=== PATIENT | female | born 1980 | race Caucasian/White ===

== ENCOUNTER 2017-02-14 21:01 | Emergency (ER) | payer BC, OTHER ==
[~2017-02-14] VITALS: Ht 160 cm; Wt 99.8 kg
--- NOTE | 2017-02-14 21:31 | NUR ---
Pt ambulated to room with stiff gait. Pt c/o severe low back pain radiating down legs. Left worse than right and left knee pain s/p fall yesterday. Pt resting in position of comfort for self. Awaiting further eval.
[2017-02-14] MEDS ORDERED: DIAZEPAM 2 MG TABLET PO ONE (22:15)
[2017-02-14] MEDS ORDERED: KETOROLAC TROMETHAMINE 30 MG INJ IM ONE (22:15)
[2017-02-14] MEDS ORDERED: KETOROLAC TROMETHAMINE 30 MG INJ ONE (22:20)
[2017-02-14] MEDS ORDERED: DIAZEPAM 2 MG TABLET ONE ×2 (22:20→22:28)
[2017-02-14 22:36] LABS: *URINE HCG, QUAL NEGATIVE (NEGATIVE)
--- NOTE | 2017-02-14 23:00 | NUR ---
Pt to radiology via w/c
--- NOTE | 2017-02-14 23:39 | NUR ---
Pt returned from xray via w/c and c/o increased pain, requesting medication. notified
[2017-02-15] MEDS ORDERED: HYDROCODONE/APAP 10-325 MG TABLET PO ONE
--- NOTE | 2017-02-15 | NUR ---
Pt medicated for pain, will monitor for effects of medication. Pt resting in position of comfort for self.,
[2017-02-15] MEDS ORDERED: HYDROCODONE/APAP 10-325 MG TABLET ONE (00:09)
--- NOTE | 2017-02-15 01:05 | NUR ---
Pt sts she is feeling better. Pt stable for discharge per MD. Pt given [facility]. Pt verbalized understanding of dc instructions. 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
[2017-02-15 01:31] VITALS: BP 133/81
== END 2017-02-15 01:05 | disposition home or self-care (01) ==
LOC: ER 22:06
DX: S33.5XXA Sprain of ligaments of lumbar spine, initial encounter (principal); Z88.0 Allergy status to penicillin; W01.0XXA Fall on same level from slipping, tripping and stumbling without subsequent striking against object, initial encounter; Y93.01 Activity, walking, marching and hiking; Y92.022 Bathroom in mobile home as the place of occurrence of the external cause; Y99.9 Unspecified external cause status
CPT/HCPCS: 72110; 72220; 84703; 96372; 99285; A4663; J1885